=== PATIENT | female | born 1980 | race Two or more races ===

== ENCOUNTER 2025-06-08 07:24 | Emergency (ER) | payer MEDICAID ==
[~2025-06-08] VITALS: Ht 152.4 cm; Wt 64.4 kg
[2025-06-08 07:38] VITALS: BP 120/74; TEMP 98.4
[2025-06-08] MEDS ORDERED: IBUP-1955 PO (07:53)
[2025-06-08] MEDS ORDERED: BENZ-13 PO (07:53)
[2025-06-08] MEDS ORDERED: IBUPROFEN 600 MG TABLET ONE (07:56)
[2025-06-08 07:59] VITALS: O2SAT 98
[2025-06-08] MEDS ORDERED: IBUPROFEN 600 MG TABLET PO ONE (08:00)
== END 2025-06-08 07:59 | disposition home or self-care (01) ==
LOC: ER 07:38
DX: J06.9 Acute upper respiratory infection, unspecified (principal); R05.9 Cough, unspecified; R09.81 Nasal congestion; Z20.822 Contact with and (suspected) exposure to COVID-19